=== PATIENT | female | born 1975 | race Caucasian/White ===

== ENCOUNTER 2020-01-27 13:46 | Outpatient (CLI) | payer BC, MEDICARE ==
[2020-01-27] MEDS ORDERED: LIDOCAINE 1%, 20ML ONE (14:09)
[2020-01-27] MEDS ORDERED: BUPIVACAINE/PF-EPI 0.5% 1:200K ONE (14:09)
== END 2020-01-27 23:59 | disposition home or self-care (01) ==
LOC: OR 13:46 → OUT 13:46 → EDSTATUS 16:00 → OUT 23:59
PROVIDERS: ATTEND Podiatrist Foot & Ankle Surgery
DX: Z11.59 Encounter for screening for other viral diseases (principal)
CPT/HCPCS: U0001-CS

== ENCOUNTER 2020-02-02 12:59 | Day surgery (SDC) | payer BC, MEDICARE ==
[~2020-02-02] VITALS: Ht 152.4 cm; Wt 119.0 kg
[2020-02-02] MEDS ORDERED: morphine SULFATE 10 MG/ML, 1ML IVPush PRN (13:30)
[2020-02-02] MEDS ORDERED: EPHEDRINE 50 MG/ML, 1ML IM PRN (13:30)
[2020-02-02] MEDS ORDERED: HYDROcodone/APAP 7.5-325MG/15ML UDC PO PRN (13:30)
[2020-02-02] MEDS ORDERED: HALOPERIDOL 5 MG/ML IV PRN (13:30)
[2020-02-02] MEDS ORDERED: DIAZEPAM 5 MG/ML, 2ML IVPush PRN (13:30)
[2020-02-02] MEDS ORDERED: MIDAZOLAM 1 MG/ML, 2ML IV PRN (13:30)
[2020-02-02] MEDS ORDERED: hydrALAzine 20 MG/ML, 1ML IV PRN (13:30)
[2020-02-02] MEDS ORDERED: ACETAMINOPHEN 325 MG TABLET PO PRN (13:30)
[2020-02-02] MEDS ORDERED: ONDANSETRON 2MG/ML, 2ML IVPush PRN (13:30)
[2020-02-02] MEDS ORDERED: LABETALOL 5MG/ML, 20ML IV PRN (13:30)
[2020-02-02] MEDS ORDERED: KETOROLAC 30 MG/1 ML IVPush PRN (13:30)
[2020-02-02] MEDS ORDERED: HYDROmorphone 1 MG/ML, 1ML INJ IVPush PRN (13:30)
[2020-02-02] MEDS ORDERED: ALBUTEROL/IPRATROPIUM 2.5MG/0.5MG, 3 ML NPPB PRN (13:30)
[2020-02-02] MEDS ORDERED: METHOCARBAMOL 1,000 MG in DEXTROSE 5% 100 ML IV PRN (13:30)
[2020-02-02] MEDS ORDERED: METOCLOPRAMIDE 5 MG/ML, 2ML IVPush PRN (13:30)
[2020-02-02] MEDS ORDERED: EPHEDRINE 50 MG/ML, 1ML IVPush PRN (13:30)
[2020-02-02] MEDS ORDERED: LORazepam 2 MG/ML, 1ML IVPush PRN (13:30)
[2020-02-02] MEDS ORDERED: MEPERIDINE/PF 25MG/0.5ML IVPush PRN (13:30)
[2020-02-02] MEDS ORDERED: OXYcodone 5 MG/5 ML ORAL.SOL UDC PO PRN (13:30)
[2020-02-02] MEDS ORDERED: DIPHENHYDRAMINE 50 MG/ML, 1ML IVPush PRN (13:30)
[2020-02-02] MEDS ORDERED: FENTANYL PF 100 MCG/2ML IV PRN (13:30)
[2020-02-02] MEDS ORDERED: GLYCOPYRROLATE 0.2MG/1ML, 5ML ONE (13:37)
[2020-02-02] MEDS ORDERED: ROCURONIUM 10MG/ML,5ML ONE (13:37)
[2020-02-02] MEDS ORDERED: FENTANYL PF 250 MCG/5ML ONE (13:37)
[2020-02-02] MEDS ORDERED: MIDAZOLAM 1 MG/ML, 2ML ONE (13:37)
[2020-02-02] MEDS ORDERED: LIDOCAINE-MPF 2% ,5ML ONE (13:37)
[2020-02-02] MEDS ORDERED: PROPOFOL 10 MG/ML, 20ML ONE (13:37)
[2020-02-02] MEDS ORDERED: DEXAMETHASONE 4 MG/ML, 1ML ONE (13:37)
[2020-02-02 13:41] VITALS: BP 116/81
[2020-02-02] MEDS ORDERED: METH4TAB2 PO (13:46)
[2020-02-02] MEDS ORDERED: MELO15TA24 PO (13:46)
[2020-02-02] MEDS ORDERED: CHLORHEXIDINE 15 ML UDC MM STA (13:53)
[2020-02-02] MEDS ORDERED: LACTATED RINGERS 1,000 ML IV SCH (13:53)
[2020-02-02] MEDS ORDERED: PLEASE ENTER ALLERGIES MC SCH (14:00)
[2020-02-02] MEDS ORDERED: PLEASE ENTER HEIGHT AND WEIGHT MC SCH (14:00)
[2020-02-02] MEDS ORDERED: BUPR300T49 PO (14:21)
[2020-02-02 14:30] LABS: HCG UR SG 1.021 (1.003-1.030)
[2020-02-02] MEDS ORDERED: LIDOCAINE-MPF 1%, 5ML ONE (14:58)
[2020-02-02] MEDS ORDERED: BUPIVACAINE/EPI 0.5% 1:200K ONE (14:58)
[2020-02-02] MEDS ORDERED: CEFAZOLIN 1,000 MG ONE (15:11)
== END 2020-02-02 17:40 | disposition home or self-care (01) ==
LOC: OUT 12:59
PROVIDERS: ATTEND Podiatrist Foot & Ankle Surgery
DX: M72.2 Plantar fascial fibromatosis (principal); Z11.59 Encounter for screening for other viral diseases; M77.32 Calcaneal spur, left foot; E66.01 Morbid (severe) obesity due to excess calories; Z68.43 Body mass index [BMI] 50.0-59.9, adult; Z79.1 Long term (current) use of non-steroidal anti-inflammatories (NSAID); Z79.899 Other long term (current) drug therapy; Z88.8 Allergy status to other drugs, medicaments and biological substances
CPT/HCPCS: 28119; 73620; 81025; 87635; J0690; J1100; J2250; J2704; J3010; J7120; 76000